=== PATIENT | male | born 1980 | race Caucasian/White ===

== ENCOUNTER 2023-07-27 14:05 | Emergency (ER) | payer OTHER, SELFPAY ==
[2023-07-27 14:06] VITALS: BP 154/113; PULSE 76; RESP 16; TEMP 36.3; O2SAT 95; BMI 33.5
[2023-07-27 14:36] LABS: Bedside Glucose 464 mg/dL (74-106)
[2023-07-27 14:41] LABS: Absolute Lymphocyte Count 1.61 X10^3/uL (0.83-4.51); Basophil# 0.03 X10^3/uL; Basophil% 0.6 % (0-1); Eosinophil# 0.08 X10^3/uL; Eosinophils% 1.5 % (0-5); Hematocrit 46.3 % (40-54); Hemoglobin 16.6 g/dL (13.0-16.5); Lymphocyte # 1.61 X10^3/ul (0.83-4.51); Lymphocyte % 30.7 % (19-41); Mean Corp Hgb Conc 35.9 g/dL (32-36); Mean Corpuscular Hgb 32.2 pg (27.0-32.0); Mean Corpuscular Volume 89.9 fL (80-94); Monocyte# 0.53 X10^3/uL; Monocyte% 10.1 % (0-10); NRBC Flagged by Analyzer 0 % (0-5); Neutrophil # 2.97 X10^3/uL (2.7-7.7); Neutrophil % 56.5 % (47-70); Platelet Count 164 K/mm3 (150-450); RBC Distribution Width CV 12.3 % (11.6-14.6); RBC Distribution Width SD 40.3 fl (35.1-43.9); Red Blood Count 5.15 M/mm3 (4.6-6.2); White Blood Count 5.3 K/mm3 (4.4-11.0)
[2023-07-27 14:59] LABS: Anion Gap 7 (5-15); BUN 12 mg/dL (7-18); BUN/Creat Ratio 10.5 RATIO (10-20); Calcium,Total 8.9 mg/dL (8.5-10.1); Chloride 99 mmol/L (98-107); Creatinine, Serum 1.14 mg/dL (0.70-1.30); EST Glomerular Filtration Rate 75 mL/min (>60); Est Glom Filt Rate - Afr Amer 90 mL/min (>60); Estimated Creatinine Clearance 88.99 ml/min; Glucose 438 mg/dL (74-106); Potassium 3.7 mmol/L (3.5-5.1); Sodium Level 134 mmol/L (136-145)
[2023-07-27] MEDS: Insulin Lispro 100 UNIT/ML INSULN.PEN 10 UNIT SC (16:02)
--- NOTE | 2023-07-27 16:06 | EDS_ITS ---
HPI History of Present Illness Chief Complaint: Hyperglycemia Informant: patient Narrative Narrative: Presents with high blood sugar. Patient states about 4 years ago he was diagnosed [facility]. He had a high A1c but he does not recall what the number was. He was started on metformin at unknown dose. He was on it for about 6 months. During that time he improved his diet, he stopped drinking, he lost a lot of weight. He was able to get off the metformin and had a normal A1c. But he has noticed over the last weeks or maybe longer that he has been getting some polyuria, polydipsia and a little bit of blurring of his vision. His sleep is also a little bit worse which is what he had before 2. He was able to check his sugar today and it was quite high. He states other than that he does not feel ill. He is eating and drinking he is not having fevers. No vomiting. No chest pain. PFSH PFSH Home Medications metformin 500 mg tablet 500 mg PO BID #60 tabs 07/27/23 [Rx Last Taken Unknown] Allergy/AdvReac Type Severity Reaction Status Date / Time No Known Allergies Allergy Verified 07/27/23 14:08 Social History Smoking Status: Never smoker ROS ROS ED ROS Narrative A complete review of systems was performed and is negative except as documented in the history of present illness. Some specific details below. Constitutional: No recent fevers or chills. No real malaise. EYE: Mild blurring of vision and halos around lights. ENT: No difficulty swallowing. No swelling. No pain. He does have a dry mouth. CV: No chest pain or palpitations. Respiratory: No dyspnea. No hemoptysis. No difficulty taking breaths. GI: No nausea vomiting diarrhea or abdominal pain. : He has frequency but no dysuria. Musculoskeletal: No recent trauma. No pains. Skin: No rash. Nondiaphoretic. Neuro: No weakness or numbness. Endocrine: Both polyuria and polydipsia. EXAM Physical Exam Narrative Exam Narrative: CONSTITUTIONAL: Patient is nontoxic in appearance. The patient looks comfortable. HEENT: No notable trauma. Mucous membranes mildly dry. EYES: No conjunctival injection. No proptosis. CARDIOVASCULAR: Regular rate. Regular rhythm. No notable murmur. No JVD. RESPIRATORY: No respiratory distress. Breathing is unlabored. No wheezes. GASTROINTESTINAL: Not distended. Bowel sounds are normal. No tenderness. No guarding. No rebound. GENITOURINARY: No tenderness over the bladder. No CVA tenderness. MUSCULOSKELETAL: Atraumatic. No peripheral edema. NEUROLOGICAL: Patient is alert and appropriate. No focal deficit noted. SKIN: No noted rashes. No diaphoresis. PSYCHIATRIC: Patient is calm. Mood is appropriate. Const Vital Signs: 07/27/23 14:06 07/27/23 16:03 Temperature 97.3 F L Temperature Source Temporal Pulse Rate 76 Respiratory Rate 16 Respiratory Effort Normal Non-Labored Respiratory Pattern Normal Blood Pressure 154/113 H Blood Pressure Mean 126 Pulse Ox 95 Oxygen Delivery Method Room Air MDM MDM MDM Narrative Medical decision making narrative: Patient CBC shows mildly elevated hemoglobin that might be due to some slight hemoconcentration but the rest of the CBC is normal. Patient's electrolytes show minimally low sodium but some of this is factitious due to his high glucose. Renal function is preserved. Patient's glucose is high at 438. We rechecked him in the room he was about 480. He had just gotten the lispro moments within time of checking. Patient's blood pressure is up a little bit here. He is been told that he does maybe have some high blood pressure. But he is never been on meds. We discussed that this is something he is probably can have to follow-up for 2. Our plan is to get him some insulin and see if we can get him down a little bit. We will then get him restarted on metformin and [facility]. We were able to get his sugar down to 380s. We had a pretty extensive discussion regarding diet that will help bring this down further. We will initiate medications and he will follow-up. Lab Data Attestation: I reviewed the patient's lab results. Labs: Laboratory Results - last 24 hr 07/27/23 07/27/23 07/27/23 14:16 14:25 16:01 WBC 5.3 RBC 5.15 Hgb 16.6 H Hct 46.3 MCV 89.9 MCH 32.2 H MCHC 35.9 RDW Std Deviation 40.3 RDW Coeff of Jossue 12.3 Plt Count 164 MPV 10.0 Immature Gran % (Auto) 0.600 Neut % (Auto) 56.5 Lymph % (Auto) 30.7 [place] % (Auto) 10.1 H Eos % (Auto) 1.5 Baso % (Auto) 0.6 Absolute Neuts (auto) 3.0 Absolute Lymphs (auto) 1.61 Nucleated RBC % 0 Sodium 134 L Potassium 3.7 Chloride 99 Carbon Dioxide 28.0 Anion Gap 7 BUN 12 Creatinine 1.14 Estim Creat Clear Calc 88.99 Est GFR (MDRD) Af Amer 90 Est GFR (MDRD) Non-Af 75 BUN/Creatinine Ratio 10.5 Glucose 438 H Calcium 8.9 POC Glucose 464 H* 484 H* 07/27/23 17:02 WBC RBC Hgb Hct MCV MCH MCHC RDW Std Deviation RDW Coeff of Jossue Plt Count MPV Immature Gran % (Auto) Neut % (Auto) Lymph % (Auto) [place] % (Auto) Eos % (Auto) Baso % (Auto) Absolute Neuts (auto) Absolute Lymphs (auto) Nucleated RBC % Sodium Potassium Chloride Carbon Dioxide Anion Gap BUN Creatinine Estim Creat Clear Calc Est GFR (MDRD) Af Amer Est GFR (MDRD) Non-Af BUN/Creatinine Ratio Glucose Calcium POC Glucose 387 H Discharge Plan Triage Chief Complaint: Hyperglycemia ED Provider: Joe Anaya Dx/Rx/DC Orders Clinical Impression: Hyperglycemia, Diabetes type 2, uncontrolled Instructions: ED Diabetic Hyperglycemia Prescriptions: New metformin 500 mg tablet 500 mg PO BID Qty: 60 0RF [facility]: [facility] [Primary Care Provider] - As soon as possible Disposition Disposition: Home, Self Care
[2023-07-27 16:25] LABS: Bedside Glucose 484 mg/dL (74-106)
[2023-07-27 17:20] LABS: Bedside Glucose 387 mg/dL (74-106)
[2023-07-27 17:51] VITALS: BP 139/77; PULSE 74; RESP 15; O2SAT 99
[2023-07-27] MEDS: metFORMIN HCl 1,000 MG Tablet 1000 MG PO (17:55)
== END 2023-07-27 17:56 | disposition home or self-care (01) ==
PROVIDERS: Emergency Medicine; Emergency Provider Emergency Medicine; Visit Provider Emergency Medicine
DX: E11.65 Type 2 diabetes mellitus with hyperglycemia (principal)
CPT/HCPCS: 80048; 82962; 85025; 99283; A4216